=== PATIENT | male | born 1970 | race Hispanic/Latino ===

== ENCOUNTER 2020-06-10 13:16 | Emergency (ER) | payer BC | END 2020-06-10 13:46 | disposition home or self-care (01) | LOC: NAV ERS 13:16 | DX: M54.12 Radiculopathy, cervical region (principal); I10 Essential (primary) hypertension | CPT/HCPCS: 99281 ==

== ENCOUNTER 2021-03-25 17:14 | Emergency (ER) | payer BC, SELFPAY ==
[2021-03-25 17:59] LABS: #Lymphocytes 1.6 thou/uL (1.20-3.40); #Monocytes 0.3 thou/uL (0.11-0.59); #Neutrophils 5.9 thou/uL (1.40-6.50); %Basophils 0.5 % (0.0-1.0); %Eosinophils 0.4 % (0.0-10.0); %Lymphocytes 19.7 % (21.0-51.0); %Monocytes 4.3 % (0.0-10.0); %Neutrophils 75.1 % (42.0-75.0); Hemoglobin 16.4 g/dL (14.0-18.0); Mean Corpuscular HGB CONC 32.3 g/dL (32.0-36.0); Mean Corpuscular Hemoglobin 32.2 pg (27.0-31.0); Mean Corpuscular Volume 99.6 fL (78.0-98.0); Mean Platelet Volume 7.9 fL (7.4-10.4); Platelet Count 231 thou/uL (130-400); RBC Distribution Width 11.9 % (11.5-14.5); Red Blood Cell (RBC) Count 5.09 mill/uL (4.70-6.10); White Blood Cell (WBC) Count 7.9 thou/uL (4.8-10.8)
[2021-03-25] MEDS ORDERED: Sodium Chloride 0.9% 1,000 ML ONE (18:17)
[2021-03-25] MEDS ORDERED: Ondansetron PF 4 MG/2 ML Vial ONE (18:17)
[2021-03-25 18:29] LABS: ALT (SGPT) 12 U/L (8-55); AST (SGOT) 16 U/L (5-34); Albumin 4.4 g/dL (3.5-5.0); Alkaline Phosphatase 84 U/L (40-110); Anion Gap 16 mmol/L (10-20); BUN (Urea Nitrogen) 14 mg/dL (8.9-20.6); Bilirubin, Total 0.9 mg/dL (0.2-1.2); Calc. Creatinine Clearance 0 mL/min (70-130); Calcium 9.7 mg/dL (7.8-10.44); Carbon Dioxide 26 mmol/L (22-29); Chloride 102 mmol/L (98-107); Globulin 3.6 g/dL (2.4-3.5); Glucose 184 mg/dL (70-105); Lipase 15 U/L (8-78); Potassium 3.5 mmol/L (3.5-5.1); Sodium 140 mmol/L (136-145)
[2021-03-25 19:36] LABS: Amphetamine Detected (NotDetected); Barbiturates Screen Not Detected (NotDetected); Benzodiazepine Screen Not Detected (NotDetected); Cocaine Metabolite Screen Not Detected (NotDetected); Medtox Control Line Valid? VALID (VALID); Methadone Not Detected (NotDetected); Methamphetamine Detected (NotDetected); Opiate Screen Not Detected (NotDetected); Oxycodone Screen Not Detected (NotDetected); Phencyclidine (PCP) Not Detected (NotDetected); THC/Cannabinoid Screen Not Detected (NotDetected); Tricyclic Screen Not Detected (NotDetected)
== END 2021-03-25 19:55 | disposition home or self-care (01) ==
LOC: NAV ERS 17:14
DX: F15.10 Other stimulant abuse, uncomplicated (principal); R11.2 Nausea with vomiting, unspecified; I10 Essential (primary) hypertension
CPT/HCPCS: 36415; 80053; 80306; 83690; 85025; 96374; J2405; J7050

== ENCOUNTER 2022-04-14 10:06 | Emergency (ER) | payer SELFPAY ==
[2022-04-14] MEDS ORDERED: Sulfameth/Trimethoprim DS 800-160mg TAB ONE (10:40)
[2022-04-14] MEDS ORDERED: predniSONE 20 MG TAB ONE (10:40)
[2022-04-14] MEDS ORDERED: Amoxicillin/Potassium Clav 875 MG TAB ONE (10:40)
== END 2022-04-14 10:48 | disposition home or self-care (01) ==
LOC: NAV ERS 10:06
DX: A46 Erysipelas (principal); L01.00 Impetigo, unspecified; I10 Essential (primary) hypertension
CPT/HCPCS: 99282; J7512

== ENCOUNTER 2022-09-08 09:42 | Emergency (ER) | payer BC, SELFPAY ==
[~2022-09-08 09:42] MED LIST: Iopamidol 370 76% 100 ML VIAL ONE
[2022-09-08] MEDS ORDERED: Ipratropium/Albuterol 3 ML NEB ONE (11:03)
[2022-09-08] MEDS ORDERED: Metoprolol Tartrate 25 MG TAB ONE (11:03)
[2022-09-08 11:30] LABS: #Basophils 0.1 thou/uL (0.0-0.2); #Eosinphils 0.2 thou/uL (0.0-0.7); #Lymphocytes 1.5 thou/uL (1.20-3.40); #Monocytes 0.5 thou/uL (0.11-0.59); #Neutrophils 10.8 thou/uL (1.40-6.50); %Basophils 0.7 % (0.0-1.0); %Eosinophils 1.4 % (0.0-10.0); %Lymphocytes 11.8 % (21.0-51.0); %Monocytes 3.8 % (0.0-10.0); %Neutrophils 82.3 % (42.0-75.0); Hemoglobin 13.9 g/dL (14.0-18.0); Mean Corpuscular HGB CONC 32.4 g/dL (32.0-36.0); Mean Corpuscular Hemoglobin 31.3 pg (27.0-31.0); Mean Corpuscular Volume 96.9 fl (78.0-98.0); Mean Platelet Volume 7.8 fL (7.4-10.4); Platelet Count 246 10x3/uL (130-400); RBC Distribution Width 12.3 % (11.5-14.5); Red Blood Cell (RBC) Count 4.45 mill/uL (4.70-6.10); White Blood Cell (WBC) Count 13.1 10x3/uL (4.8-10.8)
[2022-09-08] MEDS ORDERED: Sodium Chloride 0.9% 100 ML ONE (11:35)
[2022-09-08] MEDS ORDERED: cefTRIAXone\\ROCEPHIN 1 GM VIAL ONE (11:35)
[2022-09-08 11:41] LABS: D-Dimer Test 0.75 *mcg/mL (0.27-0.43)
[2022-09-08] MEDS ORDERED: Azithromycin 250 MG TAB ONE (11:42)
[2022-09-08 11:43] LABS: ALT (SGPT) 17 U/L (8-55); AST (SGOT) 16 U/L (5-34); Albumin 3.9 g/dL (3.5-5.0); Alkaline Phosphatase 75 U/L (40-110); Anion Gap 13 mmol/L (10-20); BUN (Urea Nitrogen) 14 mg/dL (8.9-20.6); Bilirubin, Total 0.7 mg/dL (0.2-1.2); CK (CPK) 151 U/L (30-200); Calc. Creatinine Clearance 0 mL/min (70-130); Calcium 8.8 mg/dL (7.8-10.44); Carbon Dioxide 24 mmol/L (22-29); Chloride 106 mmol/L (98-107); Estimated GFR 105; Glucose 139 mg/dL (70-105); Potassium 3.8 mmol/L (3.5-5.1); Protein, Total 6.9 g/dL (6.0-8.3); Sodium 139 mmol/L (136-145)
[2022-09-08] MEDS ORDERED: Furosemide 40 MG/4 ML VIAL ONE (13:13)
[2022-09-08 13:46] LABS: SARS-CoV-2 NAA Rapid Test Not Detected (NotDetected)
[2022-09-08] MEDS ORDERED: methylPREDNISolone Sod Succ 40 MG VIAL ONE (15:02)
== END 2022-09-08 16:04 | disposition short-term general hospital (02) ==
LOC: NAV ERS 09:42
DX: A41.9 Sepsis, unspecified organism (principal); J18.9 Pneumonia, unspecified organism; J98.01 Acute bronchospasm; R09.02 Hypoxemia; I10 Essential (primary) hypertension; Z20.822 Contact with and (suspected) exposure to COVID-19
CPT/HCPCS: 36415; 71046; 71275; 80053; 82550; 83605; 83880; 84484; 85025; 85379; 85610; 85730; 87040; 87081; 87430; 87804; 93005; 96365; 96366; 96375; J0696; J1940; J2920; J3490; J7620; Q9967; U0002; U0003; U0005

== ENCOUNTER 2022-12-17 06:47 | Emergency (ER) | payer BC ==
[2022-12-17] MEDS ORDERED: Atropine Sulfate 1 mg/10 ml Syringe ONE (07:21)
[2022-12-17] MEDS ORDERED: Ondansetron PF 4 MG/2 ML Vial ONE (07:23)
[2022-12-17] MEDS ORDERED: Pantoprazole 40 MG VIAL ONE ×2 (07:29→07:33)
[2022-12-17] MEDS ORDERED: Sodium Chloride 0.9% 100 ML ONE (07:33)
[2022-12-17 07:38] LABS: #Basophils 0.1 thou/uL (0.0-0.2); #Eosinphils 0.2 thou/uL (0.0-0.7); #Lymphocytes 1.7 thou/uL (1.20-3.40); #Monocytes 0.4 thou/uL (0.11-0.59); #Neutrophils 4.2 thou/uL (1.40-6.50); %Eosinophils 3.5 % (0.0-10.0); %Lymphocytes 25.2 % (21.0-51.0); %Monocytes 6.1 % (0.0-10.0); %Neutrophils 64.2 % (42.0-75.0); Hemoglobin 13.2 g/dL (14.0-18.0); Mean Corpuscular HGB CONC 33.6 g/dL (32.0-36.0); Mean Corpuscular Hemoglobin 31.1 pg (27.0-31.0); Mean Corpuscular Volume 92.7 fl (78.0-98.0); Mean Platelet Volume 8.1 fL (7.4-10.4); Platelet Count 226 10x3/uL (130-400); RBC Distribution Width 13.3 % (11.5-14.5); Red Blood Cell (RBC) Count 4.24 mill/uL (4.70-6.10); White Blood Cell (WBC) Count 6.5 10x3/uL (4.8-10.8)
[2022-12-17 07:44] LABS: INR-International Normal Ratio 0.9; Prothrombin Time 12.9 sec (12.0-14.7)
[2022-12-17 07:45] LABS: PTT 30.4 sec (22.9-36.1)
[2022-12-17 07:58] LABS: ALT (SGPT) 14 U/L (8-55); AST (SGOT) 20 U/L (5-34); Albumin 4.3 g/dL (3.5-5.0); Alkaline Phosphatase 64 U/L (40-110); Anion Gap 16 mmol/L (10-20); BUN (Urea Nitrogen) 20 mg/dL (8.9-20.6); Bilirubin, Total 0.6 mg/dL (0.2-1.2); CK (CPK) 211 U/L (30-200); Calc. Creatinine Clearance 0 mL/min (70-130); Calcium 8.9 mg/dL (7.8-10.44); Carbon Dioxide 23 mmol/L (22-29); Chloride 106 mmol/L (98-107); Estimated GFR 106; Glucose 131 mg/dL (70-105); Potassium 3.8 mmol/L (3.5-5.1); Protein, Total 7.3 g/dL (6.0-8.3); Sodium 141 mmol/L (136-145)
== END 2022-12-17 10:00 | disposition short-term general hospital (02) ==
LOC: NAV ERS 06:47
DX: K92.2 Gastrointestinal hemorrhage, unspecified (principal); R00.1 Bradycardia, unspecified; I11.0 Hypertensive heart disease with heart failure; I50.9 Heart failure, unspecified
CPT/HCPCS: 80053; 82550; 84443; 84484; 85025; 85610; 85730; 86850; 86900; 86901; 93005; 96365; 96366; 96375; 96376; C9113; J0461; J2405

== ENCOUNTER 2023-07-25 10:10 | Emergency (ER) | payer OTHER, SELFPAY ==
[2023-07-25] MEDS ORDERED: Ibuprofen 800 MG TAB ONE (10:57)
== END 2023-07-25 11:03 | disposition home or self-care (01) ==
LOC: NAV ERS 10:10
DX: S33.6XXA Sprain of sacroiliac joint, initial encounter (principal); S33.5XXA Sprain of ligaments of lumbar spine, initial encounter; I10 Essential (primary) hypertension; W01.0XXA Fall on same level from slipping, tripping and stumbling without subsequent striking against object, initial encounter
CPT/HCPCS: 72100; 72220

== ENCOUNTER 2023-09-21 09:02 | Emergency (ER) | payer SELFPAY | END 2023-09-21 09:49 | disposition home or self-care (01) | LOC: NAV ERS 09:02 | DX: S39.012A Strain of muscle, fascia and tendon of lower back, initial encounter (principal); J30.9 Allergic rhinitis, unspecified; I11.0 Hypertensive heart disease with heart failure; I50.9 Heart failure, unspecified; X50.1XXA Overexertion from prolonged static or awkward postures, initial encounter; Y99.0 Civilian activity done for income or pay | CPT/HCPCS: 99283 ==

== ENCOUNTER 2024-01-05 13:35 | Emergency (ER) | payer OTHER, SELFPAY ==
[2024-01-05] MEDS ORDERED: Sodium Chloride 0.9% 1,000 ML ONE (14:05)
[2024-01-05] MEDS ORDERED: Ketorolac Tromethamine 30 MG (1 mL) VIAL ONE (14:05)
[2024-01-05] MEDS ORDERED: Metoclopramide HCl 10 MG (2 mL) VIAL ONE (14:05)
== END 2024-01-05 15:23 | disposition home or self-care (01) ==
LOC: NAV ERS 13:35
DX: R51.9 Headache, unspecified (principal); I11.0 Hypertensive heart disease with heart failure; I50.9 Heart failure, unspecified
CPT/HCPCS: 96365; 96375; J1885; J2765; J7050

== ENCOUNTER 2024-02-29 15:51 | Emergency (ER) | payer SELFPAY ==
[2024-02-29 16:31] LABS: #Basophils 0.1 thou/uL (0.0-0.2); #Eosinphils 0.3 thou/uL (0.0-0.7); #Lymphocytes 2.1 thou/uL (1.20-3.40); #Monocytes 0.4 thou/uL (0.11-0.59); #Neutrophils 6.5 thou/uL (1.40-6.50); %Basophils 1.2 % (0.0-1.0); %Eosinophils 2.8 % (0.0-10.0); %Lymphocytes 22.5 % (21.0-51.0); %Monocytes 4.7 % (0.0-10.0); %Neutrophils 68.9 % (42.0-75.0); Hematocrit 40.8 % (42.0-52.0); Hemoglobin 12.5 g/dL (14.0-18.0); Mean Corpuscular HGB CONC 30.8 g/dL (32.0-36.0); Mean Corpuscular Hemoglobin 27.8 pg (27.0-31.0); Mean Corpuscular Volume 90.4 fl (78.0-98.0); Mean Platelet Volume 7.6 fL (7.4-10.4); Platelet Count 181 10x3/uL (130-400); RBC Distribution Width 13.6 % (11.5-14.5); Red Blood Cell (RBC) Count 4.51 mill/uL (4.70-6.10); White Blood Cell (WBC) Count 9.5 10x3/uL (4.8-10.8)
[2024-02-29 16:39] LABS: INR-International Normal Ratio 1.1; Prothrombin Time 14.1 sec (12.0-14.7)
[2024-02-29 16:42] LABS: D-Dimer Test 0.84 mcg/mL (0.27-0.43)
[2024-02-29 16:43] LABS: Troponin I 0.043 ng/mL (< 0.028)
[2024-02-29 16:46] LABS: ALT (SGPT) 14 U/L (8-55); AST (SGOT) 16 U/L (5-34); Albumin 3.6 g/dL (3.5-5.0); Alkaline Phosphatase 78 U/L (40-110); Anion Gap 12 mmol/L (10-20); BUN (Urea Nitrogen) 11 mg/dL (8.4-25.7); Calc. Creatinine Clearance 0 mL/min (70-130); Calcium 8.8 mg/dL (7.8-10.44); Carbon Dioxide 24 mmol/L (22-29); Chloride 107 mmol/L (98-107); Estimated GFR 99; Globulin 3.2 g/dL (2.4-3.5); Glucose 153 mg/dL (70-105); Magnesium 1.8 mg/dL (1.6-2.6); Potassium 3.7 mmol/L (3.5-5.1); Protein, Total 6.8 g/dL (6.0-8.3); Sodium 139 mmol/L (136-145)
[2024-02-29 17:01] LABS: Influenza A by NAA Not Detected (NotDetected); Influenza B by NAA Not Detected (NotDetected); SARS-CoV-2 NAA Rapid Test Not Detected (NotDetected)
[2024-02-29] MEDS ORDERED: Aspirin Chewable 81 MG TAB ONE (17:03)
[2024-02-29] MEDS ORDERED: Furosemide 40 MG (4 mL) VIAL ONE (17:03)
[2024-02-29 17:50] LABS: Amphetamine Detected (NotDetected); Barbiturates Screen Not Detected (NotDetected); Benzodiazepine Screen Not Detected (NotDetected); Cocaine Metabolite Screen Not Detected (NotDetected); Methadone Not Detected (NotDetected); Methamphetamine Detected (NotDetected); Opiate Screen Not Detected (NotDetected); Oxycodone Screen Not Detected (NotDetected); Phencyclidine (PCP) Not Detected (NotDetected); THC/Cannabinoid Screen Not Detected (NotDetected); Tricyclic Screen Not Detected (NotDetected)
== END 2024-02-29 18:30 | disposition home or self-care (01) ==
LOC: NAV ERS 15:51
DX: I11.0 Hypertensive heart disease with heart failure (principal); I50.9 Heart failure, unspecified; R79.89 Other specified abnormal findings of blood chemistry
CPT/HCPCS: 71045; 71275; 80053; 80306; 83735; 83880; 84484; 85025; 85379; 85610; 85730; 93005; 94760; 96374; J1940; Q9967